=== PATIENT | female | born 1985 | race Hispanic/Latino ===

== ENCOUNTER 2020-05-31 19:07 | Emergency (ER) | payer OTHER, SELFPAY ==
[2020-05-31 19:49] VITALS: BP 147/102; PULSE 64; RESP 20; TEMP 35.8; O2SAT 99
--- NOTE | 2020-05-31 20:29 | ED.HA ---
HPI - Headache General Chief Complaint: Headache Stated Complaint: Sinus pressure Time Seen by Provider: 05/31/20 20:27 Source: patient Mode of arrival: ambulatory Limitations: no limitations History of Present Illness HPI Narrative: Patient is a 35-year-old female complaining of migraine headache, 4 out of 10, throbbing, frontal, nonradiating started today. Patient states that this is her typical migraine headache. Patient claims that she had a CT scan of her head last year for the same complaint at [facility] and it was normal. Patient states that she has been having sinus pressure and congestion for the past 3 to 4 days. Patient denies any neck pain or stiffness, fever, chills, speech or visual disturbance, focal weakness or numbness or unsteady gait. Related Data Home Medications Medication Instructions Recorded Confirmed No Home Medications 05/31/20 05/31/20 Allergies Allergy/AdvReac Type Severity Reaction Status Date / Time poison eric extract Allergy Mild Hives Verified 05/31/20 19:53 No Known Allergies Allergy Unknown Verified 05/31/20 19:53 Review of Systems Review of Systems: All systems reviewed & are unremarkable except as noted in HPI and below Constitutional: Constitutional: Denies body ache(s), Denies chills, Denies excessive sweating, Denies fatigue, Denies fever(s), Denies headache(s), Denies lethargy, Denies malaise, Denies weakness and Denies weight loss Eyes: Eyes: Denies blurry vision, Denies change in vision and Denies loss of vision ENT: Denies dizziness, Denies ear discharge, Denies headache(s), Denies lip swelling, Denies epistaxis, Denies neck pain, Denies throat swelling and Denies tongue swelling Cardiovascular: Cardiovascular: Denies chest pain, Denies chest pain at rest, Denies chest pain with activity, Denies diaphoresis, Denies rapid heart rate, Denies edema, Denies irregular heart rhythm, Denies lightheadedness, Denies palpitations, Denies dyspnea and Denies dyspnea on exertion Respiratory: Respiratory: Denies chest congestion, Denies cough, Denies hemoptysis, Denies dyspnea and Denies dyspnea on exertion Gastrointestinal: Gastrointestinal: Denies abdominal pain, Denies melena, Denies hematochezia, Denies diarrhea, Denies nausea, Denies vomiting and Denies hematemesis Musculoskeletal: Musculoskeletal: Denies abnormal gait, Denies deformity, Denies joint swelling, Denies limited range of motion, Denies neck pain and Denies numbness Neurologic: Denies Abnormal speech present, Denies abnormal gait, Denies confusion, Denies dizziness, Denies focal weakness, Denies loss of vision, Denies numbness, Denies Other visual disturbances, Denies Sensory deficit (Neuro) and Denies weakness Psychiatric: Psychiatric: Denies confusion, Denies depression, Denies auditory hallucinations, Denies homicidal ideation and Denies suicidal ideation Endocrine: Endocrine: Denies cold intolerance, Denies excessive sweating, Denies fatigue, Denies heat intolerance and Denies palpitations Hematologic/Lymphatic: Hematologic/Lymphatic: Denies easy bleeding and Denies easy bruising Allergic/Immunologic: Allergic/Immunologic: Denies lip swelling, Denies throat swelling and Denies tongue swelling PMFSH Past Medical History Medical History Anemia History of migraine Kidney stones Surgical History Surgical History History of appendectomy History of section History of cholecystectomy S/P cystoscopy with ureteral stent placement Family History Family History Sibling Crohn disease Father Psoriasis Father Hill's palsy Social History Social History Social History: The patient lives in [place], [place], with her children and parents. 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 She designates her mo
[2020-05-31] MEDS: SUMAtriptan SUCCINATE 6 MG/0.5 ML VIAL SUB-Q (20:47)
[2020-05-31] MEDS: KETOROLAC 30 MG/ML VIAL (*BKC) IM (20:47)
--- NOTE | 2020-05-31 21:37 | PC.NURSE ---
Pt states she doesnt feel much better but doesnt want to take any additional medication that may make her drowsy. EDJun Ashley notified. He stated the medications she received may take longer to take effect and we will continue to watch patient for now. Pt updated and agreeable to plan. Will continue to monitor patients headache.
[2020-05-31 22:18] VITALS: BP 124/88; PULSE 72; RESP 14; TEMP 36.8; O2SAT 100
== END 2020-05-31 22:20 | disposition home or self-care (01) ==
PROVIDERS: Emergency Provider Emergency Medicine
DX: G43.009 Migraine without aura, not intractable, without status migrainosus (principal); J32.9 Chronic sinusitis, unspecified; Z86.2 Personal history of diseases of the blood and blood-forming organs and certain disorders involving the immune mechanism; Z87.442 Personal history of urinary calculi; Z96.0 Presence of urogenital implants
CPT/HCPCS: 96372; 99284; J1885; J3030

== ENCOUNTER 2020-07-05 22:57 | Emergency (ER) | payer OTHER, SELFPAY ==
[2020-07-05 22:58] VITALS: BP 156/93; PULSE 78; RESP 18; TEMP 36.4; O2SAT 100
--- NOTE | 2020-07-05 23:43 | ED.RECABL ---
HPI - Recheck/Abnormal Lab/Rx General Chief Complaint: Recheck/Abnormal Lab/Rx Stated Complaint: high blood pressure Time Seen by Provider: 07/05/20 23:32 Source: patient Mode of arrival: ambulatory Limitations: no limitations History of Present Illness HPI narrative: 35-year-old female Presents to the ED after checking her blood pressure at home and finding it to be elevated, approximately 150/100 She did not have any other symptoms with this, no chest pain or trouble breathing, no headache, no swelling, no weakness She had just seen her doctor and been started on a new blood pressure medicine, hydrochlorothiazide, a few days ago and was given a blood pressure monitor to use at home On review of records here it does appear that her blood pressure is running approximately 150/100 over the course of several visits here over the last 18 months Related Data Home Medications Medication Instructions Recorded Confirmed aspirin 07/05/20 07/05/20 ergocalciferol (vitamin D2) 07/05/20 fluoxetine mg 07/05/20 hydrochlorothiazide 07/05/20 Allergies Allergy/AdvReac Type Severity Reaction Status Date / Time No Known Allergies Allergy Unknown Verified 07/05/20 22:58 Review of Systems Review of Systems: All systems reviewed & are unremarkable except as noted in HPI and below Constitutional: Constitutional: Reports no additional constitutional complaints and Denies headache(s) Eyes: Eyes: Denies change in vision ENT: Denies headache(s) Cardiovascular: Cardiovascular: Denies chest pain and Denies dyspnea Respiratory: Respiratory: Denies dyspnea Gastrointestinal: Gastrointestinal: Denies abdominal pain Genitourinary: Genitourinary: Denies urinary frequency Musculoskeletal: Musculoskeletal: Denies deformity and Denies numbness Integumentary/Breasts: Skin/Breast: Denies wounds Neurologic: Denies headache(s), Denies focal weakness and Denies numbness Psychiatric: Psychiatric: Reports no additional psychiatric complaints Endocrine: Endocrine: Reports no additional endocrine complaints Hematologic/Lymphatic: Hematologic/Lymphatic: Reports no additional hematologic/lymphatic complaints Allergic/Immunologic: Allergic/Immunologic: Reports no additional allergic/immunologic complaints PMF Past Medical History Medical History Anemia History of migraine Kidney stones Surgical History Surgical History History of appendectomy History of section History of cholecystectomy S/P cystoscopy with ureteral stent placement Family History Family History Sibling Crohn disease Father Psoriasis Father Hill's palsy Social History Social History Social History: The patient lives in [place], [place], with her children and parents. 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 She designates her mother, Marva Juan, as her surrogate decision maker and she wishes to be a full code. She denies alcohol, tobacco, and drug use. Gender identity (if verbalized by the patient): Female Exam Const: General: cooperative, no acute distress and alert Nutritional Appearance: obese Orientation/consciousness: patient oriented x3 (alert) Limitations: no limitations HENMT: Head: normal to inspection, normocephalic and atraumatic Ears: external ears normal General nose exam: no epistaxis Eyes: Conjunctivae: conjunctivae normal EOM: EOMs intact bilaterally Neck: Neck: normal visual inspection, supple and no JVD Resp: Effort & Inspection: normal respiratory effort and not labored Auscultation: clear to auscultation bilaterally and other (BS =) Cardio: Rate: regular rate Rhythm: regular rhythm Heart sounds: no murmurs Skin: General skin exam: normal color and no rashes or lesions noted N
--- NOTE | 2020-07-05 23:48 | PC.NURSE ---
Pt presents to ED with complaints of hypertension after checking at home. States she was diagnosed with hypertension one week ago and prescribed hydrichlorathiazide. Pt denies any missed doses in the past week nausea and emesis. Pt complains of intermittent headaches. Pain rated 7/10 at this time. Pt noted to be alert and oriented x4 with stable vitals and is in no obvious distress at this time. Call button and personal items within reach. Advised to press call button for assistance. EDMD presented to bedside.
[2020-07-05 23:51] VITALS: BP 120/83; PULSE 77; RESP 18; TEMP 36.7; O2SAT 99
[2020-07-06 00:11] VITALS: BP 120/83; PULSE 77; RESP 18; TEMP 36.7; O2SAT 99
[2020-07-06 00:13] VITALS: BP 120/83; PULSE 77; RESP 18; TEMP 36.7; O2SAT 99
== END 2020-07-06 00:14 | disposition home or self-care (01) ==
LOC: ANHED 23:42
PROVIDERS: Emergency Provider Emergency Medicine; PCP Physician Assistant
DX: I10 Essential (primary) hypertension (principal)
CPT/HCPCS: 99281

== ENCOUNTER 2020-07-11 10:08 | Outpatient (CLI) | payer OTHER, SELFPAY ==
--- NOTE | 2020-07-11 | EST_ITS ---
Patient Info Name: Shana Alexander Age: 35 years : 1985 Gender: Female Ht: 64 in Wt: 324 lbs BSA: 2.67 m2 HR: 69 bpm BP: 115 / 78 mmHg Heart Rhythm: Sinus Rhythm Exam Date: 07/11/2020 12:04 PM Exam Location: [facility] Patient Status: Outpatient Admit Date: 07/11/2020 Staff Ordering Physician: Amanda, Ofelia PADILLA Attending Provider: Amanda, Ofelia PADILLA Exercise Technologist: Kelly Olivas CT Exercise Physician: Mitul Orellana DO Exam Type: CA stress test treadmill Study Info Indications R07.89 - Other chest pain An exercise stress test was performed. Summary 1. 1. Negative Gennaro exercise stress test for ischemic ST changes by ECG criteria. 2. 2. Reduced functional capacity, achieving 7 METs of workload. 3. 3. Appropriate HR response to exercise. 4. 4. Appropriate HR recovery at 1 minute post exercise. 5. 5. No imaging with stress testing. 6. 6. Patient informed of the above results. Protocol: Gennaro Stress ECG Details Stage: REST Duration (min): 1 min : 5 sec Speed (mph): 0.0 Grade (%): 0 HR (bpm): 67 SBP (mmHg): 115 DBP (mmHg): 78 METS: --- Stage: REST Duration (min): 6 min : 47 sec Speed (mph): 0.0 Grade (%): 0 HR (bpm): 74 SBP (mmHg): 115 DBP (mmHg): 78 METS: --- Stage: STAGE 1 Duration (min): 1 min : 0 sec Speed (mph): 1.7 Grade (%): 10 HR (bpm): 108 SBP (mmHg): 115 DBP (mmHg): 78 METS: --- Stage: STAGE 1 Duration (min): 2 min : 0 sec Speed (mph): 1.7 Grade (%): 10 HR (bpm): 128 SBP (mmHg): 115 DBP (mmHg): 78 METS: --- Stage: STAGE 1 Duration (min): 3 min : 0 sec Speed (mph): 1.7 Grade (%): 10 HR (bpm): 143 SBP (mmHg): 192 DBP (mmHg): 82 METS: --- Stage: STAGE 2 Duration (min): 1 min : 0 sec Speed (mph): 2.5 Grade (%): 12 HR (bpm): 165 SBP (mmHg): 192 DBP (mmHg): 82 METS: --- Stage: STAGE 2 Duration (min): 2 min : 0 sec Speed (mph): 2.5 Grade (%): 12 HR (bpm): 172 SBP (mmHg): 197 DBP (mmHg): 102 METS: --- Stage: STAGE 2 Duration (min): 2 min : 0 sec Speed (mph): 2.5 Grade (%): 12 HR (bpm): 172 SBP (mmHg): 197 DBP (mmHg): 102 METS: --- Stage: RECOVERY Duration (min): 0 min : 59 sec Speed (mph): 0.0 Grade (%): 0 HR (bpm): 141 SBP (mmHg): 197 DBP (mmHg): 102 METS: --- Stage: RECOVERY Duration (min): 1 min : 59 sec Speed (mph): 0.0 Grade (%): 0 HR (bpm): 121 SBP (mmHg): 197 DBP (mmHg): 102 METS: --- Stage: RECOVERY Duration (min): 2 min : 59 sec Speed (mph): 0.0 Grade (%): 0 HR (bpm): 110 SBP (mmHg): 197 DBP (mmHg): 102 METS: --- Stage: RECOVERY Duration (min): 3 min : 16 sec Speed (mph): 0.0 Grade (%): 0 HR (bpm): 109 SBP (mmHg): 156 DBP (mmHg): 65 METS: --- Rest HR: 74 bpm
== END 2020-07-11 10:09 | disposition home or self-care (01) ==
PROVIDERS: PCP Physician Assistant; Visit Provider Physician Assistant
DX: R07.89 Other chest pain (principal)
CPT/HCPCS: 93017

== ENCOUNTER 2020-10-01 18:16 | Emergency (ER) | payer OTHER, SELFPAY ==
--- NOTE | ~2020-10-01 | XR_ITS ---
EXAMINATION: XR chest 1V portable DATE: 10/01/2020 18:37 INDICATION: Cough, congestion and chills TECHNIQUE: frontal view of the chest was obtained. COMPARISON: Chest radiograph dated 12/11/2018 FINDINGS: The lungs remain clear with no focal airspace opacities, pulmonary edema, pleural effusion or pneumot horax. The cardiomediastinal silhouette is normal. Visualized bones and soft tissues are unremarkable . IMPRESSION: 1. No acute cardiopulmonary disease. Reviewed, dictated and finalized at location A.
[2020-10-01 18:20] VITALS: BP 148/107; PULSE 101; RESP 20; TEMP 38.2; O2SAT 97
--- NOTE | 2020-10-01 18:22 | ECG_ITS ---
Measurements Intervals [place] Rate: 100 P: 18 VT: 131 QRS: -3 QRSD: 97 T: -16 QT: 342 QTc: 443 Interpretive Statements SINUS TACHYCARDIA BORDERLINE R WAVE PROGRESSION, ANTERIOR LEADS INFERIOR INFARCT, AGE INDETERMINATE BASELINE ARTIFACT- I, II, III, AVR, AVL, AVF, V1, V3-V6 ABNORMAL ECG Electronically Signed On 10-01-2020 20:06:29 CDT by Mitul Orellana D.O.
[2020-10-01 18:36] LABS: Hematocrit 42.3 % (37.0-47.0); Hemoglobin 13.6 g/dL (12.0-15.0); Immature Granulocyte Absolute 0.01 K/mm3 (0.00-0.031); Immature Granulocyte Percent A 0.2 % (0-0.5); Immature Platelet Fraction Pct 4.5 % (0.9-11.2); Mean Corpuscular HGB Conc 32.2 g/dl (32-36); Mean Corpuscular Hemoglobin 26.3 pg (26-34); Mean Corpuscular Volume 81.8 fl (80-100); Mean Platelet Volume 10.3 fl (7.4-10.4); Monocytes Absolute Auto 0.1 K/mm3 (0.1-0.6); Monocytes Percent Auto 3.3 % (2.6-8.5); Neutrophils Absolute Auto 3.6 K/mm3 (1.3-6.7); Neutrophils Percent Auto 82.5 % (45.5-73.1); Platelet Count Result 138 k/mm3 (150-375); Red Blood Count 5.17 M/mm3 (4.2-5.4); Red Cell Distribution Width 15.6 % (11.5-14.5); White Blood Count 4.3 K/mm3 (4.5-10.0)
[2020-10-01 18:44] LABS: INR 0.9; Prothrombin Time 11.7 Seconds (11.1-14.7)
[2020-10-01 18:45] LABS: Partial Thromboplastin Time 29.7 SECONDS (22.3-36.8)
[2020-10-01 18:47] LABS: D Dimer 1.88 ug/mL (<0.48)
[2020-10-01 18:48] LABS: Alanine Aminotransferase 40 U/L (4-35); Albumin Level 4.3 g/dL (3.5-5.1); Alkaline Phosphatase 97 U/L (38-126); Anion Gap 10 mmol/L (8-16); Aspartate Amino Transferase 48 U/L (14-36); Bilirubin,Total 0.5 mg/dL (0.2-1.3); Blood Urea Nitrogen 10 mg/dL (7-17); Calcium 8.9 mg/dL (8.4-10.2); Carbon Dioxide 24 mmol/L (22-30); Chloride 105 mmol/L (98-107); Estimated CRCL calculation 106 ml/min; Estimated Glomerular Filt Rate > 60; Glucose 131 mg/dL (65-110); Potassium 3.4 mmol/L (3.4-5.0); Sodium 139 mmol/L (137-145)
--- NOTE | 2020-10-01 18:51 | ED.URI ---
HPI - URI/Sore Throat General Chief Complaint: Upper Respiratory Infection Stated Complaint: COVID + SOB Time Seen by Provider: 10/01/20 18:34 Source: patient Mode of arrival: ambulatory Limitations: no limitations History of Present Illness HPI Narrative: 35-year-old with no major medical problems diagnosed with Covid approximately 6 days ago here with complaints of cough, feeling weak. She denies any shortness of breath no history of nausea or vomiting. She states that her cough is not getting any better. Patient has not been vaccinated against Covid elicited complaint: cough Onset (ago): day(s) (6) Consistency: constant Exacerbating factors: nothing Associated symptoms: denies other symptoms Related Data Home Medications Medication Instructions Recorded Confirmed aspirin 07/05/20 07/05/20 ergocalciferol (vitamin D2) 07/05/20 fluoxetine mg 07/05/20 hydrochlorothiazide 07/05/20 Allergies Allergy/AdvReac Type Severity Reaction Status Date / Time No Known Allergies Allergy Unknown Verified 07/05/20 22:58 Review of Systems Review of Systems: All systems reviewed & are unremarkable except as noted in HPI and below Constitutional: Constitutional: Reports fever(s) and Reports weakness Eyes: Eyes: Reports no additional eye complaints ENT: Reports system reviewed and no additional complaints, except as documented Cardiovascular: Cardiovascular: Reports no additional cardiovascular complaints Respiratory: Respiratory: Reports as per HPI Gastrointestinal: Gastrointestinal: Reports no additional gastrointestinal complaints Musculoskeletal: Musculoskeletal: Reports no additional musculoskeletal complaints Neurologic: Reports system reviewed and no additional complaints, except as documented PMFSH Past Medical History Medical History Anemia History of migraine Kidney stones Surgical History Surgical History History of appendectomy History of section History of cholecystectomy S/P cystoscopy with ureteral stent placement Family History Family History Sibling Crohn disease Father Psoriasis Father Hill's palsy Social History Social History Social History: The patient lives in [place], [place], with her children and parents. 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 She designates her mother, Marva Juan, as her surrogate decision maker and she wishes to be a full code. She denies alcohol, tobacco, and drug use. Gender identity (if verbalized by the patient): Female Exam Narrative: GENERAL: Well-appearing, obese, and in no acute distress. HEAD: Normocephalic, atraumatic. EYES: PERRLA and EOMI. ENT: Nares clear, no rhinorrhea or epistaxis. Mucous membranes moist. NECK: Supple. CHEST: Clear to auscultation. No respiratory distress. HEART: Regular rate and rhythm. No murmur heard. Normal peripheral pulses. EXTREMITIES: Normal range of motion. No edema. SKIN: Warm, dry, no rash. NEURO: No focal deficits. Alert and oriented x3. PSYCH: Normal mood and affect. Course Course Emergency Course: Inform patient about her lab work, x-ray findings. She was 97 200% on room air. In no distress. Advised her to take steroids as prescribed, Tylenol ibuprofen for fever or pain. Check as needed oxygen levels if they drop below 91% return to the ER. Vital Signs Vital signs: Vital Signs Temperature 38.2 C H 10/01/20 18:20 Pulse Rate 101 H 10/01/20 18:20 Respiratory Rate 10/01/20 18:20 Blood Pressure 148/107 H 10/01/20 18:20 Pulse Oximetry 97 10/01/20 18:20 Temperature 38.2 C H 10/01/20 18:20 Pulse Rate 101 H 10/01/20 18:20 Respiratory Rate 20 10/01/20 18:20 Blood Pressure 148/107 H 10/01/20 18:20 Pulse Oximetry 97 10/01/20 18:20 MDM
[2020-10-01 19:00] LABS: Troponin I < 0.012 ng/mL (0.000-0.034)
[2020-10-01 19:20] VITALS: BP 128/81; PULSE 86; RESP 19; O2SAT 97
[2020-10-01 19:40] VITALS: BP 120/75; PULSE 85; RESP 16; O2SAT 96
== END 2020-10-01 19:40 | disposition home or self-care (01) ==
LOC: ANHED 19:33
PROVIDERS: Emergency Medicine; Emergency Provider Family Medicine; PCP Physician Assistant
DX: U07.1 COVID-19 (principal); R00.0 Tachycardia, unspecified; R94.31 Abnormal electrocardiogram [ECG] [EKG]; Z79.82 Long term (current) use of aspirin; Z87.442 Personal history of urinary calculi; Z86.2 Personal history of diseases of the blood and blood-forming organs and certain disorders involving the immune mechanism
CPT/HCPCS: 36415; 71045; 80053; 84484; 85025; 85055; 85380; 85610; 85730; 93005; 99284

== ENCOUNTER 2022-01-13 19:04 | Emergency (ER) | payer OTHER, SELFPAY ==
[2022-01-13 19:28] VITALS: BP 146/100; PULSE 89; RESP 18; TEMP 36.6; O2SAT 100
[2022-01-13 20:30] LABS: Influenza A QL RT-PCR Positive (Negative); Influenza B QL RT-PCR Negative (Negative); RSV RNA, RT-PCR Negative (Negative); SARS-CoV-2 RNA PCR Negative
[2022-01-13 22:11] LABS: Appearance Urine Clear (Clear); Bilirubin Urine Negative (Negative); Blood Urine 2+ (Negative); Color Urine Yellow (Yellow); Glucose Urine UA Negative (Negative); Ketones Urine Negative (Negative); Leukocyte Esterase Ur Negative LEU/UL (Negative); Nitrate Urine Negative (Negative); Protein Urine Negative (Negative); Specific Grav Ur 1.015 (1.001-1.035); pH Urine 5.5 (5.0-9.0)
[2022-01-13 22:16] LABS: Bacteria Urine Trace /hpf; Mucus Urine Rare /lpf; Squamous Epithelial Cell Urine Moderate /hpf (Few); WBC Urine 0-3 /hpf
[2022-01-13 22:17] LABS: Add Urine Microscopic? YES
--- NOTE | 2022-01-13 22:29 | ED.GENADULT ---
HPI - General Adult General Chief complaint: Unspecified Stated complaint: cough, fever, UTI symptoms Time Seen by Provider: 01/13/22 21:26 Source: RN notes reviewed History of Present Illness HPI narrative: Patient presents emergency room from home for upper respiratory infection symptoms. Patient states symptoms began approximately 1 week ago. States that she is had a cough this been nonproductive. States has been associated with rhinorrhea and a sore throat. She denies any measured fevers or chills she denies any chest pain short of breath abdominal pains or vomiting. Patient also states she feels like she may be developing a UTI as she has been having some urinary frequency she denies having any abdominal pain denies any chance of Related Data Home Medications Medication Instructions Recorded Confirmed aspirin 81 mg tablet,delayed 07/05/20 07/05/20 release ergocalciferol (vitamin D2) 1,250 07/05/20 mcg (50,000 unit) capsule fluoxetine 20 mg capsule mg 07/05/20 hydrochlorothiazide 12.5 mg capsule 07/05/20 Allergies Allergy/AdvReac Type Severity Reaction Status Date / Time No Known Allergies Allergy Unknown Verified 01/13/22 19:28 Review of Systems Review of Systems: Gen.: Denies fevers or chills Eyes: Denies eye pain or visual change ENT: See HPI Respiratory: Denies shortness of breath reports cough CV: Denies chest pain or palpitations GI: Denies abdominal pain nausea, emesis or diarrhea see HPI Musculoskeletal: Denies back pain or muscle pain Neuro: Denies numbness, tingling, weakness or focal weakness Skin: Denies rash Except as documented, all other systems reviewed and negative [facility] Past Medical History Medical History Anemia History of migraine Kidney stones Surgical History Surgical History History of appendectomy History of section History of cholecystectomy S/P cystoscopy with ureteral stent placement Family History Family History Sibling Crohn disease Father Psoriasis Father Hill's palsy Social History Social History Social History: The patient lives in [place], [place], with her children and parents. 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 She designates her mother, Marva Juan, as her surrogate decision maker and she wishes to be a full code. She denies alcohol, tobacco, and drug use. Gender identity (if verbalized by the patient): Female Exam Narrative: APPEARANCE: No acute distress, nontoxic, resting in bed EYES: EOMI HEENT: Normocephalic, atraumatic, bilateral turbinates boggy, mild erythema with no exudate posterior pharynx bilateral tonsils uvula midline no trismus RESPIRATORY: No respiratory distress Clear to auscultation bilaterally with no rhonchi wheezing or rales. CARDIOVASCULAR: Regular rate and rhythm without murmurs rubs or gallops. ABDOMINAL: Soft, nontender, nondistended, no rebound or guarding MUSCULOSKELETAl: Moves all extremities. No clubbing, cyanosis or edema. NEURO: Awake and alert. Following commands, speech normal, no focal deficits SKIN:: Warm, dry. No rashes lesions or abrasions PSYCHIATRIC: Normal affect/mood, Course Course Emergency Course: Discussed with patient results of workup and diagnosis. Discussed need for follow-up with primary care, proper use of medication, and reasons to return to the emergency department. Patient understands and agrees to current treatment plan Vital Signs Vital signs: Vital Signs Temperature 98 F 01/13/22 19:28 Pulse Rate 89 01/13/22 19:28 Respiratory Rate 18 01/13/22 19:28 Blood Pressure 146/100 H 01/13/22 19:28 Pulse Oximetry 100 01/13/22 19:28 Oxygen Delivery Room Air 01/13/22 19:28 Temperature 98 F 01/13/22 19:28 Pulse Rate 89 1
[2022-01-13] MEDS: NITROFURANTOIN MONOHYD MACROCR 100 MG CAP PO (22:34)
== END 2022-01-13 22:36 | disposition home or self-care (01) ==
PROVIDERS: Emergency Medicine; Emergency Provider Emergency Medicine
DX: J10.1 Influenza due to other identified influenza virus with other respiratory manifestations (principal); Z20.822 Contact with and (suspected) exposure to COVID-19; Z86.2 Personal history of diseases of the blood and blood-forming organs and certain disorders involving the immune mechanism; Z87.442 Personal history of urinary calculi; Z96.0 Presence of urogenital implants; Z79.82 Long term (current) use of aspirin
CPT/HCPCS: 81001; 81025; 87637; 99283; A9270